=== PATIENT | female | born 1985 ===

== ENCOUNTER 2024-09-02 15:25 | Emergency (ER) | payer OTHER ==
[~2024-09-02] VITALS: Ht 167.6 cm; Wt 83.9 kg
[2024-09-02] MEDS ORDERED: Budeprion Xl300 MG PO (15:45)
[2024-09-02] MEDS ORDERED: AMPDEX5 PO (15:45)
[2024-09-02] MEDS ORDERED: Prozac20 MG PO (15:45)
[2024-09-02] MEDS ORDERED: ALBU90OI INH (15:46)
[2024-09-02] MEDS ORDERED: GABA300 PO (15:46)
[2024-09-02] MEDS ORDERED: NS 1,000 ML IV SCH (16:00)
[2024-09-02] MEDS ORDERED: Ketorolac Tromethamine 15mg Vial IV ONE (16:00)
[2024-09-02 16:12] LABS: BASOPHILS ABSOLUTE AUTO 0.05 K/mm3 (0.00-0.23); BASOPHILS PERCENT AUTO 1 % (0-2); EOSINOPHILS ABSOLUTE AUTO 0.27 K/mm3 (0.00-0.68); EOSINOPHILS PERCENT AUTO 3 % (0-6); Hematocrit 36.4 % (33.0-51.0); Hemoglobin 12.2 g/dL (11.5-16.0); IMMATURE GRAN ABSOLUTE AUTO 0.03 K/mm3 (0.00-0.10); IMMATURE GRAN PERCENT AUTO 0 % (0-1); LYMPHOCYTES ABSOLUTE AUTO 1.71 K/mm3 (0.84-5.20); LYMPHOCYTES PERCENT AUTO 16 % (21-46); MONOCYTES ABSOLUTE AUTO 0.54 K/mm3 (0.16-1.47); MONOCYTES PERCENT AUTO 5 % (4-13); Mean Corpuscular HGB 31.5 pg (26.0-34.0); Mean Corpuscular HGB Conc 33.5 g/dL (31.5-36.5); Mean Corpuscular Volume 94 fL (80-100); Mean Platelet Volume 8.4 fL (9.1-12.4); NEUTROPHILS ABSOLUTE AUTO 7.88 K/mm3 (1.96-9.15); NEUTROPHILS PERCENT AUTO 75 % (41-73); Platelet Count 292 K/mm3 (150-400); RDW Coefficient Variation 12.2 % (11.7-14.2); RDW Standard Deviation 41.9 fL (35.1-46.3); Red Blood Cell Count 3.87 M/mm3 (3.80-5.20); White Blood Cell Count 10.48 K/mm3 (4.00-11.30)
[2024-09-02 16:34] LABS: Albumin, Blood 3.3 g/dL (3.4-5.0); Bilirubin, Total 0.7 mg/dL (0.1-1.0); Bun/Creatinine Ratio 10.9 (12.0-20.0); Calcium, Blood 7.7 mg/dL (8.5-10.1); Creatinine, Blood 0.74 mg/dL (0.40-1.00); Globulin, Blood 3.2 g/dL (2.2-4.0); Potassium, Blood 3.3 mmol/L (3.5-5.5); Total Protein, Blood 6.5 g/dL (6.4-8.2)
[2024-09-02] MEDS ORDERED: Potassium Chloride 20 MEQ/15 ML UDC PO ONE (17:15)
[2024-09-02] MEDS ORDERED: Doxycycline Hyclate 100 MG TAB PO ONE (18:00)
[2024-09-02] MEDS ORDERED: Doxycycline Mo100 M1 PO (18:02)
== END 2024-09-02 18:16 | disposition home or self-care (01) ==
LOC: ER 15:25
PROVIDERS: Student in an Organized Health Care Education/Training Program
DX: L03.316 Cellulitis of umbilicus (principal); K42.9 Umbilical hernia without obstruction or gangrene; Z79.899 Other long term (current) drug therapy; Z88.5 Allergy status to narcotic agent
CPT/HCPCS: 74177; 80053; 83690; 85025; 96374-59; 99284-25; A9270; J1885; J7030; Q9967